=== PATIENT | female | born 1970 | race Caucasian/White ===

== ENCOUNTER → 2016-11-02 | Outpatient (CLI) | payer OTHER ==
[2016-11-02 13:37] LABS: ALBUMIN 4.1 GM/DL (3.2-5.2); ALBUMIN/GLOBULIN RATIO 1.03 (1.00-1.93); ALKALINE PHOSPHATASE 83 U/L (45-117); ALT/SGPT 28 U/L (12-78); ANION GAP 8 MEQ/L (8-16); AST/SGOT 14 U/L (15-37); BILIRUBIN,TOTAL 0.5 MG/DL (0.2-1.0); BLOOD UREA NITROGEN 12 MG/DL (7-18); CALCIUM LEVEL 8.7 MG/DL (8.5-10.1); CARBON DIOXIDE LEVEL 26 MEQ/L (21-32); CHLORIDE LEVEL 104 MEQ/L (98-107); CHOLESTEROL LEVEL 233 MG/DL (<200); GLOMERULAR FILTRATION RATE > 60.0 (>58); GLUCOSE, FASTING 99 MG/DL (70-105); POTASSIUM SERUM 4.5 MEQ/L (3.5-5.1); SODIUM LEVEL 138 MEQ/L (136-145); TOTAL PROTEIN 8.1 GM/DL (6.4-8.2); TRIGLYCERIDES LEVEL 253 MG/DL (<150)
== END ==
LOC: M SMT 11:02
PROVIDERS: ATTEND Family Medicine Addiction Medicine
DX: R03.0 Elevated blood-pressure reading, without diagnosis of hypertension (principal)

== ENCOUNTER 2017-02-10 15:44 | Emergency (ER) | payer OTHER ==
[~2017-02-10] VITALS: Ht 167.6 cm; Wt 68.2 kg
[2017-02-10] MEDS ORDERED: LISI10TA4 PO (15:57)
[2017-02-10] MEDS ORDERED: AMLO10TA2 PO (15:57)
[2017-02-10] MEDS ORDERED: NS 1,000 ML IV SCH (16:06)
[2017-02-10 16:17] LABS: BASO # 0.1 K/mm3 (0.0-0.2); EOS # 0.3 K/mm3 (0.0-0.50); EOS % 2.6 % (0.0-3.0); LARGE UNSTAINED CELL # 0.1 K/mm3 (0.0-0.4); LYMPH # 3.2 K/mm3 (1.5-4.5); LYMPH % 24.4 % (24.0-44.0); MEAN CORPUSCULAR HEMOGLOBIN 29.7 pg (27.0-33.0); MEAN CORPUSCULAR HGB CONC 33.8 g/dl (32.0-36.5); MEAN CORPUSCULAR VOLUME 87.8 fl (80.0-96.0); MONO # 0.5 K/mm3 (0.0-0.8); NEUTROPHILS # 8.4 K/mm3 (1.8-7.7); NEUTROPHILS % 67.1 % (36.0-66.0); PLATELET COUNT, AUTOMATED 334 k/mm3 (150-450); RED CELL DISTRIBUTION WIDTH 12.1 % (11.5-14.5); WHITE BLOOD COUNT 12.6 K/mm3 (4.0-10.0)
[2017-02-10 16:21] LABS: CONTROL LINE HCG INT CTR LINE PRESENT
[2017-02-10 16:23] LABS: INR 0.91
[2017-02-10] MEDS: MORPHINE 2 MG/ML 1ML SYRINGE IV PRN ×3 (16:23→20:52)
[2017-02-10 16:32] LABS: ALBUMIN 3.9 GM/DL (3.2-5.2); ALBUMIN/GLOBULIN RATIO 1.11 (1.00-1.93); ALKALINE PHOSPHATASE 76 U/L (45-117); ALT/SGPT 21 U/L (12-78); ANION GAP 9 MEQ/L (8-16); AST/SGOT 6 U/L (15-37); BILIRUBIN,DIRECT < 0.1 MG/DL (0.0-0.2); BILIRUBIN,TOTAL 0.3 MG/DL (0.2-1.0); BLOOD UREA NITROGEN 8 MG/DL (7-18); CALCIUM LEVEL 8.6 MG/DL (8.5-10.1); CARBON DIOXIDE LEVEL 25 MEQ/L (21-32); CHLORIDE LEVEL 102 MEQ/L (98-107); CREATININE FOR GFR 0.66 MG/DL (0.55-1.02); GLOMERULAR FILTRATION RATE > 60.0 (>58); GLUCOSE, FASTING 92 MG/DL (70-105); POTASSIUM SERUM 4.3 MEQ/L (3.5-5.1); SODIUM LEVEL 136 MEQ/L (136-145); TOTAL PROTEIN 7.4 GM/DL (6.4-8.2)
[2017-02-10] MEDS ORDERED: ISOVUE-370 76% 100ML VIAL (Q9967) As Ordered ONE (16:48)
--- NOTE | 2017-02-10 20:10 | REPUSA ---
CLINICAL HISTORY: Neck pain. TECHNIQUE: Magnetic resonance imaging of the cervical spine was performed with a standard multiplanar multisequence protocol. Gadolinium was infused intravenously, and the T1 weighted images were repeat ed. The visualized osseous elements are intact with no evidence of fracture or dislocation. The cervical cord is of grossly normal uniform signal intensity without evidence of focal expansion. There is no e vidence for tonsillar herniation. Limited views of the posterior fossa reveal no abnormalities. There is straightening of normal cervical lordosis compatible with muscular spasm. Mild multilevel disk dehydration/dessication is seen. Schmorl's nodes and Modic changes As well as m oderate loss of disc space height noted at C5-6 and C6-7 . At C2-C3, no abnormalities are noted. There is no disk herniation or bulge. At C3-C4 , no abnormalities are noted. There is no disk herniation or bulge. At C4-C5, no abnormalities are noted. There is no disk herniation or bulge. At C5-C6, broad based herniations flattents the cord with moderate canal stenosis and bilateral josselyn inal stenosis with compression of bilateral C6 nerve roots. At C6-C7, broad based herniations impinge on the cord with mild canal stenosis and bilateral foramina l stenosis with compression of bilateral C7 nerve roots. At C7-T1 , no abnormalities are noted. There is no disk herniation or bulge. There is no abnormal enhancement noted. IMPRESSION: Straightening of normal cervical lordosis compatible with muscular spasm. At C5-C6, broad based herniations flattents the cord with moderate canal stenosis and bilateral josselyn inal stenosis with compression of bilateral C6 nerve roots. At C6-C7, broad based herniations impinge on the cord with mild canal stenosis and bilateral foramina l stenosis with compression of bilateral C7 nerve roots. Thank you for your kind referral of this patient.
--- NOTE | 2017-02-10 20:10 | REPUSA ---
HISTORY: Pain. TECHNIQUE: Magnetic resonance imaging of the thoracic spine was performed with a standard multiplanar multisequence protocol. Gadolinium was infused intravenously and additional imaging was performed. FINDINGS: There is normal thoracic vertebral body height and alignment on this supine, non-weight bearing exam. Vertebral body marrow signal is normal. No marrow replacement or destruction. The spinal cord and conus medullaris have normal diameter and signal intensity and show no expansion, compression or abnormal contrast enhancement. No intradural-extramedullary lesions. All of the intervertebral disc spaces have normal height and signal intensity. There is no herniated nucleus pulposus, canal or foraminal stenosis. No paraspinal masses or collections. IMPRESSION: Normal MRI of the thoracic spine without and with contrast. Thank you for your kind referral of this patient
[2017-02-10] MEDS ORDERED: NORC1TAB4 PO (21:11)
[2017-02-10] MEDS ORDERED: MOBI4TAB PO (21:15)
[2017-02-10] MEDS ORDERED: TYLE325T5 PO (21:16)
[2017-02-10 21:22] VITALS: BP 121/81
--- NOTE | 2017-02-11 02:06 | ECGEPIP ---
Stationary ECG Study [facility] - ED Test Date: 2017-02-10 Pat Name: ARTUR PALUMBO Department: Room: - Gender: F [employer] System Conveyor Operator: nilam : 1970 Requested By: HU GARCIA Order Number: [id number] Reading MD: Mac Ortiz Measurements Intervals [place] Rate: 78 P: 53 KS: 161 QRS: 10 QRSD: 80 T: 13 QT: 362 QTc: 414 Interpretive Statements SINUS RHYTHM NSTTW ABNORMALITIES NO PRIORS Electronically Signed On 02-11-2017 2:06:21 EDT by Mac Ortiz
--- NOTE | 2017-02-11 07:28 | REP ---
REASON: Chest pain. PRIORS: None. FINDINGS: The superior mediastinal structures are midline. The cardiac silhouette is unremarkable in size, shape, and position. The diaphragmatic surfaces of the lungs are regular, and the costophrenic angles are clear. The pulmonary raymond are clear. The imaged osseous structures are intact. IMPRESSION: There is no acute cardiopulmonary disease. Signed by Riky Chin DO 02/11/2017 09:20 A
== END 2017-02-10 21:34 | disposition home or self-care (01) ==
LOC: M ED 15:44
DX: M48.02 Spinal stenosis, cervical region (principal); M25.512 Pain in left shoulder; I10 Essential (primary) hypertension; F17.210 Nicotine dependence, cigarettes, uncomplicated; Z79.899 Other long term (current) drug therapy
CPT/HCPCS: 36415; 71020; 72156; 72157; 80048; 80076; 82550; 82553; 83880; 84443; 84703; 85025; 85379; 85610; 86140; 93000; 93041; 94760; 96361; 96374; 96376; 99285; A9576